=== PATIENT | male | born 1995 ===

== ENCOUNTER → 2022-11-26 09:18 | Outpatient (CLI) | payer SELFPAY | PROVIDERS: Visit Provider Registered Nurse | DX: N39.0 Urinary tract infection, site not specified (principal) | CPT/HCPCS: 87086 ==

== ENCOUNTER 2022-11-26 10:16 | Emergency (ER) | payer OTHER, SELFPAY ==
[2022-11-26 10:23] VITALS: BP 137/75; PULSE 68; RESP 15; TEMP 37.3; O2SAT 99; BMI 25.7
--- NOTE | 2022-11-26 10:29 | ED_ITS ---
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 He was evaluated by [facility] November 14 for some back pain he was put on Cipro and Flagyl he is just finished those antibiotics. He now feels like he is still having pain it also hurts when he pees. He has bilateral flank pain. Denies any nausea vomiting or fevers. He just isn't feeling any better. Related Data Previous Rx's Medication Instructions Recorded diclofenac potassium 50 mg tablet 50 mg PO TID PRN pain #60 tabs 11/26/22 Allergies Allergy/AdvReac Type Severity Reaction Status Date / Time No Known Drug Allergies Allergy Verified 11/26/22 10:28 Review of Systems Review of Systems ROS Unobtainable: All systems reviewed & are unremarkable except as noted in HPI and below Patient History Social History Smoking Status: Unknown if ever smoked Smoking Status: Unknown if ever smoked Exam Initial Vital Signs Initial Vital Signs: Vital Signs Temperature 99.1 F 11/26/22 10:23 Pulse Rate 68 11/26/22 10:23 Respiratory Rate 15 11/26/22 10:23 Blood Pressure 137/75 11/26/22 10:23 Pulse Oximetry 99 11/26/22 10:23 Oxygen Delivery Method Room Air 11/26/22 10:23 GENERAL: Alert well-appearing 27-year-old male HEENT: Head atraumatic,EOMI, pupils reactive, face symmetric, moist mucous membranes CARDIOVASCULAR: Regular rate and rhythm without murmurs, rubs or gallops. RESPIRATORY: Breath sounds equal bilaterally, no wheezes rales or rhonchi. ABDOMEN: Soft, nontender. Normoactive bowel sounds all 4 quadrants. No guardi ng or rebound. : Mild bilateral CVA tenderness EXTREMITIES: Normal range of motion, no clubbing or edema. Neurovascularly intact NEUROLOGICAL: Alert and oriented x4. SKIN: Warm, dry, no laceration, no petechiae, no rashes or lesions. Course Orders Ordered: ED Orders 11/26/22 10:33 CT abdomen pelvis w con Stat 11/26/22 10:40 CBC Auto Diff [Complete Blood Count AUTO DIFF] Stat CMP [Comprehensive Metabolic Panel] Stat Lipase Stat Discontinued Medications Ketorolac Tromethamine (Ketorolac 30 Mg/Ml Vial) 15 mg IV NOW ONE Stop: 11/26/22 10:31 Last Admin: 11/26/22 10:53 Dose: 15 mg Documented By: ADALBERTO Vital Signs Vital signs: Vital Signs - 8 hr 11/26/22 12:23 11/26/22 12:25 Pulse Rate 61 61 Respiratory Rate 18 19 Blood Pressure 133/77 133/77 Pulse Oximetry 99 99 Oxygen Delivery Method Room Air Room Air MDM - Abdominal Pain Lab Data 11/26/22 10:40 11/26/22 10:40 Labs: Lab Results 11/26/22 11/26/22 Range/Units 10:40 10:40 WBC 5.2 (4.5-11.0) X10^3/uL RBC 5.31 (4.5-5.9) X10^6/uL Hgb 16.1 (13.5-17.5) g/dL Hct 46.9 (41-53) % MCV 88.3 (80-100) fL MCH 30.3 (26-34) PG MCHC 34.3 (30-36) % RDW 12.4 (11.6-14.8) % Plt Count 191 (150-400) X10^3/uL Neut % (Auto) 67.6 (50-75) % Lymph % (Auto) 21.5 L (25-40) % [place] % (Auto) 7.8 (3-14) % Eos % (Auto) 2.0 (2-4) % Baso % (Auto) 1.1 (0-2) % Neut # (Auto) 3500 (5477-3841) /uL Lymph # (Auto) 1100 (3422-0626) /uL [place] # (Auto) 400 (0-900) /uL Eos # (Auto) 100 (0-450) /uL Baso # (Auto) 100 (0-100) /uL Sodium 137 (137-145) mmol/L Potassium 4.2 (3.4-5.1) mmol/L Chloride 101 (98-107) mmol/L Carbon Dioxide 28 (22-32) mmol/L BUN 12 (9-20) mg/dL Creatinine 0.96 (0.66-1.25) mg/dL Estimated GFR > 60 (>60) mL/min BUN/Creatinine Ratio 12.5 (6-22) Glucose 95 (70-100) mg/dL Calcium 9.4 (8.4-10.2) mg/dL Total Bilirubin 1.4 H (0.2-1.3) mg/dL AST 48 (17-59) IU/L ALT 64 H (<50) IU/L Alkaline Phosphatase 88 (38-126) U/L Total Protein 8.3 H (6.3-8.2) g/dL Albumin 4.5 (3.5-5.0) g/dL Globulin 3.8 (1.7-4.1) g/dL Albumin/Globulin Ratio 1.2 (1.0-2.8) Lipase 102 (23-300) U/L Imaging Data CT scan - abdomen/pelvis: Radiologist's Impression: PROCEDURE:? CT ABDOMEN PELVIS W CON ? INDICATIONS:? bilateral flank pain, ab pain x 2 weeks ? TECHNIQUE:? After the administration of IV contrast, axial sections were acquired from the lung bases to the pubic symphysis.? Coronal and sagittal reformats were performed.? For radiation dose reduction, the following was used:? automated exposure control, adjustment of mA and/or kV according to patient size. ? COMPARISON:? None. ? FINDINGS:? Image quality:? Excellent.? ? Lung bases:? Unremarkable.? ? Heart:? No significant findings. ? ? ABDOMEN: Liver:? Unremarkable.? ? Gallbladder:? Unremarkable.? ? Biliary ducts:? Unremarkable.? ? Pancreas:? Unremarkable.? ? Spleen:? Unremarkable.? ? Adrenal Glands:? Unremarkable.? ? Kidneys and Ureters:? The kidneys demonstrate normal size and enhance symmetrically.? There is no hydronephrosis.? No perinephric fat stranding can be seen.? ? Stomach and Bowel:? Stomach, small bowel loops, and colon are unremarkable.? A normal appendix is incidentally noted.? Peritoneum:? No abnormal intraperitoneal fluid.? No free air.? ? Ventral Wall: ? No hernia.? Abdominal Nodes:? No retroperitoneal or mesenteric adenopathy by size criteria.? Vessels:? Aorta and inferior vena cava are normal in size.? ? PELVIS: Pelvic Organs:? Unremarkable.? ? Bladder:? Unremarkable.? ? Pelvic Nodes: No enlarged lymph nodes.? Miscellaneous: No inguinal hernias are seen. ? ? ? Bones:? Unremarkable.? IMPRESSION:? ? Normal appearing kidneys, without hydronephrosis or perinephric fat stranding. ? Normal appendix.? ? Dictated by: Cecilio Wiley M.D. on 11/26/2022 at 10:05? MDM Narrative Medical decision making narrative: Patient 27-year-old male who presents with ongoing abdominal flank pain and abdominal pain after 10 day course of Cipro Flagyl. Blood work does not show any leukocytosis electrolyte abnormality or acute kidney injury. CT is not show any intra-abdominal etiology. No nephrolithiasis diverticulitis appendicitis pyelonephritis or other symptoms. His urinalysis from the walk-in clinic does show some hematuria but no leukocytes or nitrates or sign of infection. 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 Probable back strain without sciatica. No ev idence of cauda equina. Discharge Plan Departure Patient Disposition: Home Clinical Impression: Back pain, Hematuria Instructions: DI for Low Back Pain, DI for Hematuria Activity Restrictions/Additional Instructions: *You have been diagnosed with back pain with hematuria *What to do: At this time blood work and CT do not show any sign of infection. However you may be experiencing some back strain. I do recommend limit lifting to 10 lb or less for the next 5 days or until symptoms have improved *Continue to take medications as directed Diclofenac 50 mg 1-1-1 (every 8 hours if needed for pain) Paracetamol 1000 mg 1-1-1-1 (every 6 hours if needed for pain) *Follow up with your primary care provider in 2-3 days or call [phone] *Return to ER if you should have increasing pain numbness tingling weakness legs persistent blood urine nausea vomiting [or] any new, worsening or concerning symptoms Prescriptions: New diclofenac potassium 50 mg tablet 50 mg PO TID PRN (Reason: pain) Qty: 60 0RF Referrals: Miscellaneous,Doctor[facility] [Primary Care Provider] - Stand Alone Forms: Patient Portal/API
--- NOTE | 2022-11-26 10:33 | DI.CT.S_ITS ---
PROCEDURE: CT ABDOMEN PELVIS W CON INDICATIONS: bilateral flank pain, ab pain x 2 weeks TECHNIQUE: After the administration of IV contrast, axial sections were acquired from the lung bases to the pubic symphysis. Coronal and sagittal reformats were performed. For radiation dose reduction, the following was used: automated exposure control, adjustment of mA and/or kV according to patient size. COMPARISON: None. FINDINGS: Image quality: Excellent. Lung bases: Unremarkable. Heart: No significant findings. ABDOMEN: Liver: Unremarkable. Gallbladder: Unremarkable. Biliary ducts: Unremarkable. Pancreas: Unremarkable. Spleen: Unremarkable. Adrenal Glands: Unremarkable. Kidneys and Ureters: The kidneys demonstrate normal size and enhance symmetrically. There is no hydronephrosis. No perinephric fat stranding can be seen. Stomach and Bowel: Stomach, small bowel loops, and colon are unremarkable. A normal appendix is incidentally noted. Peritoneum: No abnormal intraperitoneal fluid. No free air. Ventral Wall: No hernia. Abdominal Nodes: No retroperitoneal or mesenteric adenopathy by size criteria. Vessels: Aorta and inferior vena cava are normal in size. PELVIS: Pelvic Organs: Unremarkable. Bladder: Unremarkable. Pelvic Nodes: No enlarged lymph nodes. Miscellaneous: No inguinal hernias are seen. Bones: Unremarkable. IMPRESSION: Normal appearing kidneys, without hydronephrosis or perinephric fat stranding. Normal appendix. Dictated by: Cecilio Wiley M.D. on 11/26/2022 at 10:05 Approved by: Cecilio Wiley M.D. on 11/26/2022 at 10:07
[2022-11-26 10:48] LABS: Add Manual Diff / Slide Review NO; Basophils Absolute Auto 100 /uL (0-100); Basophils Percent Auto 1.1 % (0-2); Eosinophils Absolute Auto 100 /uL (0-450); Hematocrit 46.9 % (41-53); Hemoglobin 16.1 g/dL (13.5-17.5); Lymphocytes Absolute Auto 1100 /uL (1100-4500); Lymphocytes Percent Auto 21.5 % (25-40); Mean Corpuscular HGB Conc 34.3 % (30-36); Mean Corpuscular Hemoglobin 30.3 PG (26-34); Mean Corpuscular Volume 88.3 fL (80-100); Monocytes Absolute Auto 400 /uL (0-900); Monocytes Percent Auto 7.8 % (3-14); Neutrophils Absolute Auto 3500 /uL (1500-7000); Neutrophils Percent Auto 67.6 % (50-75); Platelet Count 191 X10^3/uL (150-400); Red Blood Cell Count 5.31 X10^6/uL (4.5-5.9); Red Cell Distribution Width 12.4 % (11.6-14.8); White Blood Cell Count 5.2 X10^3/uL (4.5-11.0)
[2022-11-26] MEDS: KETOROLAC 30 MG/ML VIAL 15 MG IV (10:53)
[2022-11-26 10:58] LABS: Alanine Aminotransferase 64 IU/L (<50); Albumin 4.5 g/dL (3.5-5.0); Albumin Globulin Ratio 1.2 (1.0-2.8); Alkaline Phosphatase 88 U/L (38-126); Aspartate Aminotransferase 48 IU/L (17-59); BUN Creatinine Ratio 12.5 (6-22); Bilirubin Total 1.4 mg/dL (0.2-1.3); Blood Urea Nitrogen 12 mg/dL (9-20); Calcium 9.4 mg/dL (8.4-10.2); Carbon Dioxide 28 mmol/L (22-32); Chloride 101 mmol/L (98-107); Estimated Glomerular Filt Rate > 60 mL/min (>60); Globulin 3.8 g/dL (1.7-4.1); Glucose 95 mg/dL (70-100); HEMOLYSIS < 15 (0-50); Lipase 102 U/L (23-300); Potassium 4.2 mmol/L (3.4-5.1); Sodium 137 mmol/L (137-145); Total Protein 8.3 g/dL (6.3-8.2)
[2022-11-26 12:23] VITALS: BP 133/77; PULSE 61; RESP 18; O2SAT 99
[2022-11-26 12:25] VITALS: BP 133/77; PULSE 61; RESP 19; O2SAT 99
== END 2022-11-26 12:28 | disposition home or self-care (01) ==
PROVIDERS: Emergency Provider Emergency Medicine
DX: M54.9 Dorsalgia, unspecified (principal); R31.9 Hematuria, unspecified; R10.9 Unspecified abdominal pain; Y99.0 Civilian activity done for income or pay; N39.0 Urinary tract infection, site not specified
CPT/HCPCS: 36415; 74177; 80053; 83690; 85025; 87086; 96374; 99284; J1885